=== PATIENT | male | born 1985 | race African-American/Black ===

== ENCOUNTER 2016-10-09 07:39 | Day surgery (SDC) | payer OTHER ==
[~2016-10-09] VITALS: Ht 175.3 cm; Wt 158.0 kg
[~2016-10-09 07:39] MED LIST: ALBUTEROL SULFATE HFA 90 MCG/PUFF 8 GM INHALER IH ONE; CLINDAMYCIN 900 MG/D5% WATER 50 ML IV ONE; DEXAMETHASONE SOD PHOS 4 MG/ML VIAL IVP ONE; FentaNYL CITRATE-PF 250 MCG/5 ML VIAL IVP ONE; GLYCOPYRROLATE 0.2 MG/ML VIAL IM ONE; LIDOCAINE HCL/PF 2% 5 ML VIAL IM ONE; METOCLOPRAMIDE HCL 5 MG/ML 2 ML VIAL IVP ONE; MIDAZOLAM HCL 2 MG/2 ML VIAL IVP ONE; NEOSTIGMINE METHYLSULFATE 1 MG/ML 10 ML VIAL IVP ONE; PROPOFOL 1% 20 ML VIAL IVP ONE; RINGERS SOLUTION,LACTATED 1,000 ML IV ONE; RINGERS SOLUTION,LACTATED 1,000 ML IV SCH; ROCURONIUM BROMIDE 10 MG/ML 5 ML VIAL IVP ONE
[2016-10-09] MEDS ORDERED: RINGERS SOLUTION,LACTATED 0 ML IV ONE (07:54)
[2016-10-09] MEDS ORDERED: ACETAMINOPHEN 1000 MG/ISO-OSM 100 ML IV ONE (10:14)
[2016-10-09] MEDS ORDERED: BUPIVACAINE/EPI/PF 0.5% 30 ML VIAL ONE (10:18)
[2016-10-09] MEDS ORDERED: BUPIVACAINE 0.25%/EPI 1:200,000/PF 10 ML VIAL ONE (10:18)
[2016-10-09] MEDS ORDERED: RINGERS SOLUTION,LACTATED 1,000 ML IV ONE (10:30)
[2016-10-09] MEDS ORDERED: HYDROmorphone 2 MG/ML SYRINGE IVP PRN (10:45)
[2016-10-09] MEDS ORDERED: FentaNYL CITRATE-PF 100 MCG/2 ML VIAL IVP PRN (10:45)
[2016-10-09] MEDS ORDERED: MEPERIDINE-PF 25 MG/ML SYRINGE IVP PRN (10:45)
[2016-10-09] MEDS ORDERED: GUM MASTIC/STORAX/MSAL/ALCOHOL LIQUID 0.67 ML VIAL TP ONE (11:39)
[2016-10-09] MEDS ORDERED: BACITRACIN 28.4 GM OINTMENT TP ONE (11:39)
[2016-10-09] MEDS ORDERED: FentaNYL CITRATE-PF 100 MCG/2 ML VIAL ONE ×2 (12:34→12:43)
[2016-10-09] MEDS ORDERED: OXYGEN THERAPY IH SCH (20:00)
== END 2016-10-09 13:55 | disposition home or self-care (01) ==
LOC: SURGERY 07:39 → EDSTATUS 09:30 → SURGERY 13:55
PROVIDERS: ATTEND Orthopaedic Surgery Hand Surgery
DX: S43.432A Superior glenoid labrum lesion of left shoulder, initial encounter (principal); M65.812 Other synovitis and tenosynovitis, left shoulder; M75.42 Impingement syndrome of left shoulder; M54.9 Dorsalgia, unspecified; E66.01 Morbid (severe) obesity due to excess calories; J45.909 Unspecified asthma, uncomplicated; Z98.890 Other specified postprocedural states; V49.88XA Car occupant (driver) (passenger) injured in other specified transport accidents, initial encounter; Y92.488 Other paved roadways as the place of occurrence of the external cause; Y93.9 Activity, unspecified
CPT/HCPCS: 29807; 29823; 29826; C1713 ×2; J0131; J1100; J2250; J2704; J2765; J3010 ×2; J3490 ×5; J7120; J3535

== ENCOUNTER 2018-05-11 00:06 | Emergency (ER) | payer OTHER ==
[~2018-05-11] VITALS: Ht 180.3 cm; Wt 165.9 kg
[2018-05-11 02:35] VITALS: BP 134/90
== END 2018-05-11 03:15 | disposition home or self-care (01) ==
LOC: EMS 00:07
DX: S41.112D Laceration without foreign body of left upper arm, subsequent encounter (principal); M79.602 Pain in left arm; W26.0XXD Contact with knife, subsequent encounter
CPT/HCPCS: 99283

== ENCOUNTER 2021-09-28 06:53 | Emergency (ER) | payer OTHER ==
[~2021-09-28] VITALS: Ht 182.9 cm; Wt 174.5 kg
[2021-09-28 07:52] LABS: COVID AG,FIA SOURCE NASOPHARYNGEAL
[2021-09-28 09:37] LABS: BASOPHILS % (AUTO) 0.5 % (0.0-2.0); EOSINOPHILS % (AUTO) 0 % (1.0-6.0); HEMATOCRIT 42.1 % (41-53); HEMOGLOBIN 13.5 g/dL (13.5-17.5); LYMPHOCYTES % (AUTO) 18.7 % (22.0-44.0); MEAN CORPUSCULAR HEMOGLOBIN 26.6 pg (26.0-34.0); MEAN CORPUSCULAR HGB CONC 32.1 G/dL (31.0-37.0); MEAN CORPUSCULAR VOLUME 83 fL (80-100); MONOCYTES # (AUTO) 0.6 K/uL (0.1-1.0); MONOCYTES % (AUTO) 10.5 % (2.0-9.0); NEUTROPHILS # (AUTO) 3.7 K/uL (1.8-7.7); NEUTROPHILS % (AUTO) 70.3 % (40.0-70.0); PLATELET COUNT (AUTO) 229 K/uL (150-450); RED CELL DISTRIBUTION WIDTH 15.2 % (11.5-14.5)
[2021-09-28 09:44] LABS: ANION GAP 3 mmol/L (8-16); CALCIUM, TOTAL 8.2 mg/dL (8.8-10.5); CARBON DIOXIDE 32 mmol/L (22-29); CHLORIDE 102 mmol/L (98-107); CREATININE 1.13 mg/dL (0.60-1.30); GLOMERULAR FILTR. RATE CALC > 60 mL/min (>60); GLUCOSE,RANDOM 109 mg/dL (70-110); POTASSIUM 4.6 mmol/L (3.5-5.1); SODIUM SERUM 137 mmol/L (136-145); UREA NITROGEN, BLOOD 10 mg/dL (7-18)
[2021-09-28] MEDS: ACETAMINOPHEN 500 MG TABLET PO ONE ×2 (09:44→09:50)
[2021-09-28 09:50] VITALS: BP 139/87
[2021-09-28 09:53] LABS: B-TYPE NATRIURETIC PEPTIDE < 5 pg/mL (0-100)
[2021-09-28 10:02] LABS: ALANINE AMINOTRANSFERASE 29 U/L (12-78); ALBUMIN 3.2 g/dL (3.4-5.0); ALKALINE PHOSPHATASE 71 U/L (46-116); ASPARTATE AMINOTRANSFERASE 44 U/L (15-37); BILIRUBIN,TOTAL 0.9 mg/dL (0.1-1.0); C-REACTIVE PROTEIN QUANT 14.48 mg/dL (0.00-0.30); FERRITIN 470 ng/mL (26-388)
[2021-09-28 10:42] LABS: ERYTHROCYTE SEDIMENTATION RATE 30 MM/HR (0-15)
[2021-09-28] MEDS ORDERED: DEXA6TAB7 PO (14:40)
== END 2021-09-28 10:16 | disposition left against medical advice (07) ==
LOC: EMS 06:55
DX: J18.9 Pneumonia, unspecified organism (principal); Z20.822 Contact with and (suspected) exposure to COVID-19
CPT/HCPCS: 36415; 71045; 80053; 82728; 83880; 85025; 85651; 86140; 87426; 93005; 99285; U0003

== ENCOUNTER 2024-03-04 22:50 | Emergency (ER) | payer MEDICAID, OTHER ==
[~2024-03-04] VITALS: Ht 182.9 cm; Wt 190.9 kg
[~2024-03-04 22:50] MED LIST changes: -ALBUTEROL SULFATE HFA 90 MCG/PUFF 8 GM INHALER IH ONE; -CLINDAMYCIN 900 MG/D5% WATER 50 ML IV ONE; +DEXA6TAB7 PO; -DEXAMETHASONE SOD PHOS 4 MG/ML VIAL IVP ONE; -FentaNYL CITRATE-PF 250 MCG/5 ML VIAL IVP ONE; -GLYCOPYRROLATE 0.2 MG/ML VIAL IM ONE; -LIDOCAINE HCL/PF 2% 5 ML VIAL IM ONE; -METOCLOPRAMIDE HCL 5 MG/ML 2 ML VIAL IVP ONE; -MIDAZOLAM HCL 2 MG/2 ML VIAL IVP ONE; -NEOSTIGMINE METHYLSULFATE 1 MG/ML 10 ML VIAL IVP ONE; -PROPOFOL 1% 20 ML VIAL IVP ONE; -RINGERS SOLUTION,LACTATED 1,000 ML IV ONE; -RINGERS SOLUTION,LACTATED 1,000 ML IV SCH; -ROCURONIUM BROMIDE 10 MG/ML 5 ML VIAL IVP ONE
[2024-03-04 22:54] VITALS: BP 155/82; TEMP 98.2
[2024-03-05 00:17] LABS: INFLUENZA A-RTPCR,COMBO NEGATIVE (NEGATIVE); INFLUENZA B-RTPCR,COMBO NEGATIVE (NEGATIVE); RESPIRATORY SYNCYTIAL VRS-PCR NEGATIVE (NEGATIVE); SARS COVID19 RTPCR, COMBO NEGATIVE (NEGATIVE)
[2024-03-05] MEDS ORDERED: AZIT-167 PO (01:50)
[2024-03-05] MEDS: ALBUTEROL SULFATE 2.5 MG/0.5 ML NEB SOLUTION NEB ONE (02:04)
[2024-03-05 02:05] VITALS: PULSE 98; RESP 22; O2SAT 99
[2024-03-05] MEDS: IPRATROPIUM BROMIDE 0.5 MG/2.5 ML NEB SOLUTION NEB ONE (02:05)
[2024-03-05 02:15] VITALS: PULSE 102; RESP 22; O2SAT 99
[2024-03-05] MEDS: CefTRIAXone SODIUM 1 GM/VIAL IM ONE (02:44)
[2024-03-05] MEDS: LIDOCAINE/PF 1% 2 ML VIAL IM ONE (02:45)
== END 2024-03-05 03:00 | disposition home or self-care (01) ==
LOC: EMS 22:50
DX: J98.4 Other disorders of lung (principal); R05.9 Cough, unspecified; R06.02 Shortness of breath; Z20.822 Contact with and (suspected) exposure to COVID-19
CPT/HCPCS: 99284; 0241U; 71046; 94060; 94640; 96372; J0696; J3490; J7613

== ENCOUNTER 2024-09-06 20:06 | Emergency (ER) | payer MEDICAID, OTHER ==
[~2024-09-06] VITALS: Ht 182.9 cm; Wt 189.6 kg
[~2024-09-06 20:06] MED LIST changes: +AZIT-167 PO
[2024-09-06 20:27] VITALS: BP 152/83; PULSE 92; RESP 18; TEMP 98.6; O2SAT 96
[2024-09-06] MEDS: ACETAMINOPHEN 500 MG TABLET PO ONE (23:13)
== END 2024-09-06 23:16 | disposition home or self-care (01) ==
LOC: EMS 20:06
DX: M25.512 Pain in left shoulder (principal); Z79.52 Long term (current) use of systemic steroids; V89.2XXA Person injured in unspecified motor-vehicle accident, traffic, initial encounter; Y93.89 Activity, other specified; Y92.410 Unspecified street and highway as the place of occurrence of the external cause; Y99.8 Other external cause status
CPT/HCPCS: 72040; 72070; 99284; 73030-TC; Z7502; Z7610

== ENCOUNTER 2024-11-28 06:19 | Emergency (ER) | payer MEDICAID, OTHER ==
[~2024-11-28] VITALS: Ht 182.9 cm; Wt 184.0 kg
[2024-11-28 06:25] VITALS: BP 159/133; PULSE 94; RESP 16; TEMP 98.3; O2SAT 98
== END 2024-11-28 07:15 | disposition home or self-care (01) ==
LOC: EMS 06:24
DX: S40.012A Contusion of left shoulder, initial encounter (principal); Z79.52 Long term (current) use of systemic steroids; V43.52XA Car driver injured in collision with other type car in traffic accident, initial encounter; Y93.89 Activity, other specified; Y92.89 Other specified places as the place of occurrence of the external cause; Y99.8 Other external cause status
CPT/HCPCS: 99283